=== PATIENT | male | born 1990 | race American Indian/Alaskan Native ===

== ENCOUNTER 2020-10-24 06:08 | Emergency (ER) | payer SELFPAY | END 2020-10-24 09:07 | disposition left against medical advice (07) | LOC: ED 06:08 ==

== ENCOUNTER 2021-12-08 03:41 | Emergency (ER) | payer SELFPAY | END 2021-12-08 06:50 | disposition left against medical advice (07) | LOC: ED 03:41 | DX: K08.89 Other specified disorders of teeth and supporting structures (principal); Z53.21 Procedure and treatment not carried out due to patient leaving prior to being seen by health care provider ==